=== PATIENT | female | born 1955 | race Caucasian/White ===

== ENCOUNTER 2020-02-17 21:57 | Inpatient (IN) | payer MEDICARE, MEDICAID ==
[2020-02-17] MEDS ORDERED: HYDROcodone/Acetaminophen 5/325 mg Tablet PO PRN ×2 (23:33)
[2020-02-17] MEDS ORDERED: Ondansetron ODT 4 MG TAB PO PRN (23:33)
[2020-02-17] MEDS ORDERED: Ondansetron PF 4 MG/2 ML Vial IVP PRN (23:33)
[2020-02-17] MEDS ORDERED: Acetaminophen 650 MG Suppository PR PRN (23:33)
[2020-02-17] MEDS ORDERED: Acetaminophen 325 MG TAB PO PRN (23:33)
[2020-02-18] MEDS ORDERED: Sodium Chloride 0.9% (PF) 10 ML VIAL FS PRN (00:06)
--- NOTE | 2020-02-18 00:08 | PDOC.HHP ---
Hospitalist HPI - History of Present Illness general malaise History of Present Illness: patient is oriented to person and place but is a poor historian and states does not remember pmhx and is tired of answering questions, most of the history was obtain from transfer records. Case of an 64y/o female with pmhx of hypertension, hyperlipidemia, hypercholesterolemia, mental impairment and colo CA who comes transfer from [facility] ED due to sepsis secondary to uti, gi bleeding and renal failure. patient states she has been having diarrhea for a month, which is watery and has recently started to turned black and is associated with weight loss and anorexia. patient denies any fever chills abdominal pain cough or sick contacts. on 12/23/2019 had a colonic biopsy which showed lymphatic colitis, pt is not currently on any treatment and has been refussing further treatment for her cancer for the last couple of months. last colonoscopy was last august and showed rectovaginal fistula. was brought to the hospital due to to feeling generalize weakness and malaise. Hospitalist ROS - Review of Systems All other systems reviewed; all pertinent +/- noted in HPI/Subj Hospitalist History - Past Medical History Cardiac: reports: HTN, Hyperlipidemia Heme/Onc: reports: Cancer Endocrine: reports: Osteoporosis - Past Surgical History Past Surgical History: reports: no pertinent history - Family History Family History: reports: cancer, diabetes mellitus, hyperlipidemia, hypertension - Social History Smoking Status: Current every day smoker - Exam General Appearance: NAD, awake alert, ill appearing Eye: PERRL, anicteric sclera ENT: normocephalic atraumatic, no oropharyngeal lesions Neck: supple, symmetric, no JVD, no thyromegaly Heart: RRR, no murmur, no gallops, no rubs, normal peripheral pulses Respiratory: CTAB, no wheezes, no rales, no ronchi, normal chest expansion Gastrointestinal: soft, non-tender, non-distended, normal bowel sounds, no palpable masses Extremities: no cyanosis, no clubbing, no edema Skin: normal turgor, no lesions Neurological: cranial nerve grossly intact, normal sensation to touch, no focal deficits, no new deficit Musculoskeletal: normal tone, generalized weakness Psychiatric: normal affect, normal behavior, oriented to person, oriented to place Hospitalist Results - EKG Interpretation EKG: nsr, premature complexes - Radiology Interpretation Chest x-ray Status: report reviewed by me (no infiltrates effusions or consolidations) Hospitalist H&P A/P - Problem (1) Sepsis associated hypotension Code(s): A41.9 - SEPSIS, UNSPECIFIED ORGANISM; I95.9 - HYPOTENSION, UNSPECIFIED Status: Acute (2) UTI (urinary tract infection) Status: Acute (3) Colitis Code(s): K52.9 - NONINFECTIVE GASTROENTERITIS AND COLITIS, UNSPECIFIED Status : Acute (4) Renal failure (ARF), acute on chronic Code(s): N17.9 - ACUTE KIDNEY FAILURE, UNSPECIFIED; N18.9 - CHRONIC KIDNEY DISEASE, UNSPECIFIED Status: Acute (5) Hypertension Code(s): I10 - ESSENTIAL (PRIMARY) HYPERTENSION Status: Acute (6) GI bleeding Code(s): K92.2 - GASTROINTESTINAL HEMORRHAGE, UNSPECIFIED Status: Acute - Plan Plan: sepsis - patient with elevated lactid acid at 3.4, with hypotension with a systolic b/p in the 80s with tachycardia on initial presention with possible multiple focus of infection, uti cdif colitis. patient was treated with ivs fluids, blood and urine culture was taken and patient was started on rocephin and zosym before transfer uti - patient with u/a consistent w uti, u/c was taken and patient started on broadspectrum abx, due to renal failure and hx of rectovaginal fistula patient was started on merrem renally adjusted colitis - hx of diarrhea for 1 month, cdif +, contact isolation was started as well as po vancomycin acute over chronic renal failure - last creatinine of patient was at 4, no arrives at 9, will treat w ivfs and carvajal placement. will send renal us and u/a to evaluate sedimentation and microscopy, neprhologist was consulted anemia arrived at [facility] w hg at 6.9 was transfused 1 prbc, will re-check q8hrs and transfuse as needed gi bleeding - positive occult blood with dark stools, patient will be placed on npo, protonix 40iv q 12 started, gi was also consulted
[2020-02-18 01:00] VITALS: BMI 16.9
[2020-02-18] MEDS: Sodium Chloride 0.9% 1,000 ML IV SCH ×3 (01:00→22:11)
[2020-02-18 02:02] LABS: Bacteria/HPF 4+ HPF (None Seen); Bilirubin Negative (Negative); Blood, Urine 2+ (Negative); Clarity Extra Turbid (Clear); Glucose, Urine (Dipstick) Normal (Negative); Leukocyte 500 Leu/uL (Negative); Nitrite Negative (Negative); Protein, Urine (Dipstick) 200 mg/dL (Neg-Trace); Urobilinogen Normal mg/dL (Less than 2); WBC/HPF Greater than 50 HPF (0-3)
[2020-02-18 02:03] LABS: RBC/HPF 21-50 HPF (0-3)
[2020-02-18 04:56] LABS: #Lymphocytes 0.4 thou/uL (1.20-3.40); #Monocytes 0.5 thou/uL (0.11-0.59); #Neutrophils 6.7 thou/uL (1.40-6.50); %Eosinophils 0.1 % (0.0-10.0); %Lymphocytes 5.2 % (21.0-51.0); %Neutrophils 88.8 % (42.0-75.0); Hemoglobin 10.1 g/dL (12.0-16.0); Mean Corpuscular Hemoglobin 29.7 pg (27.0-31.0); Mean Corpuscular Volume 90.1 fL (78.0-98.0); Mean Platelet Volume 9.2 fL (7.4-10.4); Platelet Count 72 thou/uL (130-400); RBC Distribution Width 13.8 % (11.5-14.5); White Blood Cell (WBC) Count 7.5 thou/uL (4.8-10.8)
[2020-02-18 04:58] LABS: INR-International Normal Ratio 1.2; PTT 33.6 SEC (22.9-36.1)
[2020-02-18] MEDS: Vancomycin HCl 25 MG/ML Oral PO SCH ×4 (05:15→23:55)
[2020-02-18 05:16] LABS: ALT (SGPT) 9 U/L (8-55); AST (SGOT) 16 U/L (5-34); Albumin 1.8 g/dL (3.4-4.8); Alkaline Phosphatase 87 U/L (40-110); Anion Gap 22 mmol/L (10-20); BUN (Urea Nitrogen) 93 mg/dL (9.8-20.1); Bilirubin, Total 0.6 mg/dL (0.2-1.2); Calc. Creatinine Clearance 5 mL/min (70-130); Chloride 108 mmol/L (98-107); Estimated GFR-MDRD 5; Globulin 3.1 g/dL (2.4-3.5); Glucose 86 mg/dL (80-115); Protein, Total 4.9 g/dL (6.0-8.3); Sodium 135 mmol/L (136-145)
[2020-02-18 05:28] LABS: Carbon Dioxide 8 mmol/L (23-31); Potassium 2.8 mmol/L (3.5-5.1)
[2020-02-18] MEDS ORDERED: Potassium Chloride 20 MEQ TAB PO SCH ×2 (06:00→11:30)
[2020-02-18 06:35] LABS: Hemoglobin 9.2 g/dL (12.0-16.0)
--- NOTE | 2020-02-18 08:43 | ULT ---
EXAM: BILATERAL RENAL ULTRASOUND COMPLETE: History: Renal failure. FINDINGS: There is evidence for ascites bilaterally. The right kidney measures 10.1 x 4.6 x 5.2 cm. The left ki dney measures 9.1 x 5 x 5.2 cm. There is moderate bilateral renal hydronephrosis. Both right and left renal cortices appear to be somewhat hyperechoic, evidence for chronic lung disease, as well as some diffuse cortical thinning bilaterally. Reyna catheter is in place within an empty bladder. IMPRESSION: Extensive ascites. Moderate bilateral renal hydronephrosis with small kidneys and thin renal cortices bilaterally as wel l as increased cortical echogenicity, evidence for nonspecific chronic renal disease. POS: [facility]
[2020-02-18] MEDS: Pantoprazole 40 MG VIAL IVP SCH ×2 (09:08→20:21)
[2020-02-18] MEDS: Meropenem 500 MG in Sodium Chloride 0.9% 100 ML IVPB SCH (09:58)
--- NOTE | 2020-02-18 13:40 | CON ---
DATE OF CONSULTATION: 02/18/2020 REASON FOR CONSULTATION: Possible GI bleeding. 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 Upon conferring with the patient, she was only alert and oriented x2, was a relatively poor historian, so the majority of the information was obtained through chart review and discussion of her case with current staff. As far as I can tell, the patient was originally diagnosed with invasive adenocarcinoma of the rectum that did have evidence of metastatic disease with a lymph node positive in May of 2018. She subsequently underwent a low anterior resection of this rectal adenocarcinoma and had adjuvant chemotherapy and radiation therapy from November of 2018 to March of 2019. At which point, the patient seems to have refused any further treatments. However, follow up with her oncologist at [facility] [place] in [place], had imaging performed at that point in August 2019, which did not show any evidence of recurrent disease. However, it did show the presence of a colovaginal fistula that was ultimately confirmed on colonoscopy at that time. Since then, the patient has had a repeat colonoscopy in December of this year, which confirmed the presence of lymphocytic colitis secondary to chronic diarrhea that the patient had been having. Since that time, the patient had continued to have diarrhea given lack of treatment for her lymphocytic colitis and over the course of the last month had been having increased weight loss, anorexia, and possible black stools in addition to this diarrhea. With the worsening of all the symptoms that prompted the patient to seek healthcare assistance in the [place], where she was noted to have probable sepsis, hypotension, and altered mental status with labs showing acute renal injury. At which point, she was transferred to [facility] in [place] for further management/evaluation. Since being transferred to [facility] in [place], the patient has been exhibiting altered mental status and was unable to determine the date and her situation here in the hospital upon interview. However, she has not had any episodes of hematemesis, melena, or hematochezia. She has had some liquid type bowel movement since she has been admitted to the hospital. Otherwise, she does endorse [id number] generalized abdominal pain, in addition to weakness and malaise. Currently, she denies any nausea, vomiting, fevers, chills, hematemesis, melena, hematochezia, dysphagia, or odynophagia. Of note, Clostridium difficile testing at the outside institution was positive in addition to blood cultures now positive for the presence of gram-negative rods. REVIEW OF SYSTEMS: A 10-category review of systems was obtained with all responses negative except for the pertinent positives as listed above. However, the reliability of this review of systems is questionable given the patient's altered mental status. PAST MEDICAL HISTORY: As per HPI. PAST SURGICAL HISTORY: Low anterior resection and multiple colonoscopies. FAMILY HISTORY: No mention of any GI malignancies in the patient's chart. SOCIAL HISTORY: Smokes approximately 1 pack of tobacco per day. No mention of alcohol or illicit drug use. OUTPATIENT MEDICATIONS: Reviewed. INPATIENT MEDICATIONS: Reviewed. ALLERGIES: ALENDRONATE. PHYSICAL EXAMINATION: VITAL SIGNS: Temperature 97.3, pulse 95, blood pressure 106/75, respiratory rate 16, and saturating 100% on room air. GENERAL: The patient was lying in bed, in no acute distress, alert and oriented x2. HEENT: Normocephalic and atraumatic. NECK: Supple. No JVD or scleral icterus noted. CARDIOVASCULAR: Regular rate and rhythm with no discernible murmurs, gallops, or rubs. RESPIRATORY: Clear to auscultation bilaterally with no discernible wheezes or rales. ABDOMEN: Normoactive bowel sounds. Soft and nondistended. Tenderness to palpation in all abdominal quadrants to both light and deep palpation. EXTREMITIES: No cyanosis, clubbing, or edema. Extremities were cachectic in appearance. LABORATORY DATA: CBC with a white blood cell count of 7.5, hemoglobin 9.2, hematocrit 30.6, and platelets 72. Chemistry with a sodium of 135, potassium 2.8, chloride 108, CO2 of 8, BUN 93, creatinine 7.95, glucose 86, AST 16, ALT 9, alkaline phosphatase 87, total bilirubin 0.6, and albumin 1.8. INR 1.2. Microbiology from the outside institution showed that the patient was Clostridium difficile positive for both antigen and toxin, in addition to blood cultures positive for the presence of gram-negative rods. IMAGING DATA: No current GI imaging is available for review, although there was mention in her chart of a CT scan obtained in August 2019, which showed the presence of a colovaginal fistula, but no evidence of recurrent colonic malignancy. ASSESSMENT AND PLAN: The patient is a 64-year-old female with past medical history of hypertension, hyperlipidemia, chronic hepatitis C infection, osteoporosis, osteoarthritis, colon cancer status post resection with adjuvant chemotherapy and radiation therapy resulting in a rectovaginal fistula and a recent diagnosis of lymphocytic colitis presenting with Clostridium difficile colitis, acute kidney injury/failure, sepsis secondary to probable urinary tract infection with translocation to a bacteremia. Anemia/GI bleeding: The patient is presenting with a longstanding history of diarrhea as well as the presence of a colovaginal fistula that has been present since at least August 2019. As such, it seems that the patient has been treated with multiple antibiotics during that time period and has had been evaluated by a surgeon in [place], [place] for surgical correction of this fistula, but has not undergone that just yet. However, the patient is presenting with a moderate anemia with possible dark colored stools over the last month. However, upon conferring with the patient, this is not substantiated and there is no mention of melenic type stools or hematochezia per chart review. At this time, it is unclear if there is any overt evidence of active GI bleeding and with a positive FOBT obtained prior to this admission, it could be secondary to her coexisting colovaginal fistula or the Clostridium difficile colitis. Given the diagnosis of sepsis with concurrent hypotensive episodes as well as her history or her recent diagnosis of Clostridium difficile colitis, endoscopic management for either esophagogastroduodenoscopy or colonoscopy is ill-advised given the increased risk of perioperative complications. Recommendations; 1. Would continue to trend her H and H and transfuse as necessary to maintain an H and H of 7/21. 2. Continue to monitor clinically for signs of active GI bleeding. 3. Could continue the patient on a proton pump inhibitor 40 mg b.i.d. in light of possible upper GI bleeding, although it may contribute to her continued Clostridium difficile colitis, given this is a risk factor for the infection. 4. Recommend adequate treatment of her Clostridium difficile colitis as a more likely source of darker colored stools and/or hematochezia. 5. No esophagogastroduodenoscopy or colonoscopy is recommended at this time, given sepsis and concurrent Clostridium difficile colitis. 6. If the patient is adequately resuscitated and adequately treated for both her bacteremia and Clostridium difficile colitis, but continues to have a downtrending of her H and H, I would then reconsider endoscopic evaluation at that time. Clostridium difficile colitis: The patient is presenting with a history of colon cancer status post resection with adjuvant chemotherapy and radiation therapy. It is not specifically stated in her chart, but more than likely she has had the presence of a colovaginal fistula secondary to radiation changes in the lower abdomen. As such, this is a perfect setup for recurrent urinary tract infections and resultant placement on antibiotics in order to treat these particular infections with her recent antibiotic use and also places her at increased risk for Clostridium difficile colitis, which was confirmed via stool studies prior to this admission. Recommendations; 1. Would continue with oral vancomycin 125 to 250 mg every 6 hours for treatment of her Clostridium difficile colitis. Lymphocytic colitis: Per chart review, the patient was recently diagnosed with lymphocytic colitis based on random biopsies taken from a colonoscopy, it seems in December of 2019. She was not placed on any therapy per chart review, but it is unclear as to this was undertaken or not. Given the diagnosis of lymphocytic colitis, normally this is treated with budesonide 9 mg daily, but given her active bacteremia, urinary tract infection, and Clostridium difficile colitis, treatment would be decided as strongly ill-advised given that is a steroid and could potentially make that infections much worse. Recommendations; 1. Would hold on any treatment of lymphocytic colitis for now in light of her sepsis secondary to bacteremia, urinary tract infection, and Clostridium difficile colitis. 2. Would attempt to have the patient follow up with her outpatient meat seafood associate on discharge for adequate treatment for this condition. 3. We will continue aggressive replacement of potassium as her lymphocytic colitis and Clostridium difficile colitis could generate significant diarrhea resulting in hypokalemia. At this time, we have no additional recommendations with endoscopic management strongly advised against at this time. We will continue to follow peripherally for now. Please call with any questions. Job ID: [id number]
--- NOTE | 2020-02-18 14:47 | PDOC.HOSPP ---
- Subjective Encounter Date: 02/18/20 Subjective: Confused - Objective Vital Signs & Weight: Vital Signs (12 hours) Temp Pulse Resp BP Pulse Ox 02/18/20 11:32 97.3 F L 95 16 106/75 100 02/18/20 08:14 97.4 F L 82 16 108/77 99 02/18/20 08:00 99 02/18/20 05:15 97.4 F L 92 16 103/72 100 Weight Admit Weight 99 lb Weight 99 lb 1.6 oz I&O: 02/17/20 02/18/20 02/19/20 06:59 06:59 06:59 Intake Total 800 Output Total 20 Balance 780 Result Diagrams: 02/18/20 06:22 02/18/20 04:44 Hospitalist ROS - Medication Medications: Active Medications Generic Name Dose Route Start Last Admin Trade Name Freq PRN Reason Stop Dose Admin Meropenem 500 mg/ Sodium 100 mls @ 200 mls/hr 02/18/20 09:00 02/18/20 09:58 Chloride IVPB 100 mls DAILY BUBBA Administration Sodium Chloride 1,000 mls @ 100 mls/hr 02/17/20 23:45 02/18/20 11:35 Normal Saline 0.9% IV 1,000 mls .Q10H BUBBA Administration Ondansetron HCl 4 mg 02/17/20 23:33 02/18/20 05:15 Zofran IVP 4 mg Q6H PRN Administration Nausea/Vomiting Pantoprazole Sodium 40 mg 02/18/20 09:00 02/18/20 09:08 Protonix IVP 40 mg BID BUBBA Administration Vancomycin HCl 125 mg 02/18/20 06:00 02/18/20 12:40 First Vancomycin PO 125 mg Q6HR BUBBA Administration - Exam General Appearance: awake alert Neck: supple Heart: RRR Respiratory: no tachypnea Gastrointestinal: soft, tender to palpation, distended Hosp A/P (1) Colon cancer Code(s): C18.9 - MALIGNANT NEOPLASM OF COLON, UNSPECIFIED Status: Acute (2) Colitis Code(s): K52.9 - NONINFECTIVE GASTROENTERITIS AND COLITIS, UNSPECIFIED Status : Acute (3) GI bleeding Code(s): K92.2 - GASTROINTESTINAL HEMORRHAGE, UNSPECIFIED Status: Acute (4) Renal failure (ARF), acute on chronic Code(s): N17.9 - ACUTE KIDNEY FAILURE, UNSPECIFIED; N18.9 - CHRONIC KIDNEY DISEASE, UNSPECIFIED Status: Acute (5) Sepsis associated hypotension Code(s): A41.9 - SEPSIS, UNSPECIFIED ORGANISM; I95.9 - HYPOTENSION, UNSPECIFIED Status: Acute (6) UTI (urinary tract infection) Status: Acute - Plan 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 Sepsis with C. difficile colitis and UTI. Acute renal failure. Gnosis is poor. This was discussed with her decision maker who is her sister. She decided to pursue hospice care. We will consult hospice.
[2020-02-18 14:53] LABS: Hemoglobin 8.6 g/dL (12.0-16.0)
[2020-02-18 22:17] LABS: Hemoglobin 8.7 g/dL (12.0-16.0)
[2020-02-19] MEDS: Vancomycin HCl 25 MG/ML Oral PO SCH ×4 (05:45→23:37)
[2020-02-19] MEDS: Sodium Chloride 0.9% 1,000 ML IV SCH ×2 (06:57→08:18)
[2020-02-19] MEDS: Pantoprazole 40 MG VIAL IVP SCH ×2 (08:19→20:19)
[2020-02-19] MEDS: Meropenem 500 MG in Sodium Chloride 0.9% 100 ML IVPB SCH (08:19)
--- NOTE | 2020-02-19 13:10 | PDOC.HOSPP ---
- Subjective Encounter Date: 02/19/20 Subjective: Confused. - Objective Vital Signs & Weight: Vital Signs (12 hours) Temp Pulse Resp BP Pulse Ox 02/19/20 08:00 99 02/19/20 07:41 98 F 98 17 103/70 99 Weight Admit Weight 99 lb Weight 99 lb 1.6 oz I&O: 02/18/20 02/19/20 02/20/20 06:59 06:59 06:59 Intake Total 800 2500 Output Total 20 250 Balance 780 2250 Result Diagrams: 02/18/20 22:10 02/18/20 04:44 Hospitalist ROS - Medication Medications: Active Medications Generic Name Dose Route Start Last Admin Trade Name Freq PRN Reason Stop Dose Admin Meropenem 500 mg/ Sodium 100 mls @ 200 mls/hr 02/18/20 09:00 02/19/20 08:19 Chloride IVPB 100 mls DAILY BUBBA Administration Sodium Chloride 1,000 mls @ 100 mls/hr 02/17/20 23:45 02/19/20 08:18 Normal Saline 0.9% IV 1,000 mls .Q10H BUBBA Administration Ondansetron HCl 4 mg 02/17/20 23:33 02/18/20 05:15 Zofran IVP 4 mg Q6H PRN Administration Nausea/Vomiting Pantoprazole Sodium 40 mg 02/18/20 09:00 02/19/20 08:19 Protonix IVP 40 mg BID BUBBA Administration Vancomycin HCl 125 mg 02/18/20 06:00 02/19/20 05:45 First Vancomycin PO 125 mg Q6HR BUBBA Administration - Exam General Appearance: awake alert ENT: normocephalic atraumatic Neck: supple Respiratory: normal chest expansion, no tachypnea Gastrointestinal: soft Neurological: cranial nerve grossly intact, no focal deficits Hosp A/P (1) Colon cancer Code(s): C18.9 - MALIGNANT NEOPLASM OF COLON, UNSPECIFIED Status: Acute (2) Colitis Code(s): K52.9 - NONINFECTIVE GASTROENTERITIS AND COLITIS, UNSPECIFIED Status : Acute (3) GI bleeding Code(s): K92.2 - GASTROINTESTINAL HEMORRHAGE, UNSPECIFIED Status: Acute (4) Renal failure (ARF), acute on chronic Code(s): N17.9 - ACUTE KIDNEY FAILURE, UNSPECIFIED; N18.9 - CHRONIC KIDNEY DISEASE, UNSPECIFIED Status: Acute (5) Sepsis associated hypotension Code(s): A41.9 - SEPSIS, UNSPECIFIED ORGANISM; I95.9 - HYPOTENSION, UNSPECIFIED Status: Acute (6) UTI (urinary tract infection) Status: Acute - Plan 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 Sepsis with C. difficile colitis and UTI. Acute renal failure. prognosis is poor. This was discussed with her decision maker who is her sister. She decided to pursue hospice care. We will consult hospice. 02/18: Continue antibiotics until sepsis is resolved. Then we can transfer to care home with hospice if POA agreeable.
[2020-02-20] MEDS: Sodium Chloride 0.9% 1,000 ML IV SCH ×2 (05:06→11:05)
[2020-02-20] MEDS: Vancomycin HCl 25 MG/ML Oral PO SCH ×4 (05:08→23:23)
[2020-02-20 06:58] LABS: Band 20 % (5-11); Hemoglobin 8.2 g/dL (12.0-16.0); Lymphocytes 6 % (21-51); MDiff Complete? YES; Mean Corpuscular HGB CONC 32.1 g/dL (32.0-36.0); Mean Corpuscular Hemoglobin 28.9 pg (27.0-31.0); Mean Corpuscular Volume 90.1 fL (78.0-98.0); Mean Platelet Volume 8.8 fL (7.4-10.4); Metamyelocyte 2 % (0-0); Monocytes 4 % (0-10); Neutrophil 68 % (42-75); Platelet Count 58 thou/uL (130-400); Platelet Morphology Comment Appears Decreased; RBC Distribution Width 14.2 % (11.5-14.5); Red Blood Cell (RBC) Count 2.83 mill/uL (4.20-5.40); White Blood Cell (WBC) Count 11.2 thou/uL (4.8-10.8)
[2020-02-20 07:00] LABS: BUN (Urea Nitrogen) 91 mg/dL (9.8-20.1); Calc. Creatinine Clearance 6 mL/min (70-130); Calcium 7.3 mg/dL (7.8-10.44); Chloride 117 mmol/L (98-107); Estimated GFR-MDRD 6; Glucose 62 mg/dL (80-115); Potassium 4.2 mmol/L (3.5-5.1); Sodium 137 mmol/L (136-145)
[2020-02-20 07:11] LABS: Carbon Dioxide Less than 8 mmol/L (23-31)
[2020-02-20] MEDS: Meropenem 500 MG in Sodium Chloride 0.9% 100 ML IVPB SCH (08:12)
[2020-02-20] MEDS: Pantoprazole 40 MG VIAL IVP SCH ×2 (08:13→22:30)
--- NOTE | 2020-02-20 11:23 | PDOC.PALCO ---
Palliative Care Consult - Consult Details Requesting Physician: Dr Cavazos Reason for Consult: goals of care, family support - Pertinent HPI 64 year old female who presented initially to [facility]. 12/23 had a biopsy of her colon that showed lymphatic colitis, not seeking treatment, and refusing further treatment. Had a Colonoscopy in August that found a rectovaginal fistula. Patient had an onset of increasing weakness and malaise, presenting to the emergency room for further evaluation. Admitted for further management secondary to spesis, uti, colitis, renal failure, anemia and gi bleeding. Continued decline, sister is KENNY. - Social History Smoking Status: Current every day smoker Smoking: cigarettes Alcohol Use: occasional Drug Use History: none - Medications MAR Reviewed: Yes - Allergies Allergies/Adverse Reactions: Allergies Allergy/AdvReac Type Severity Reaction Status Date / Time alendronate sodium Allergy Verified 02/18/20 01:22 - Subjective Confused with pronounced weakness. - ROS Non Response: due to mental status - Objective Vital Signs: Vital Signs - Most Recent Temp Pulse Resp BP Pulse Ox 95.6 F L 89 14 93/62 94 L 02/20/20 10:51 02/20/20 10:51 02/20/20 10:51 02/20/20 10:51 02/20/20 10:51 Palliative Performance Scale: 30 - Physical Exam Constitutional: cachectic, confusion, ill appearing HEENT: moist MMs Respiratory: no wheezing, unlabored breathing Gastrointestinal: soft, positive bowel sounds, incontinent Genitourinary: carvajal catheter Musculoskeletal: no edema, pulses present Neurology: moves all 4 limbs Skin: cap refill <2 seconds, fragile, friable Deviation from normal: confused, oriented to self - Problem List (1) Colon cancer Code(s): C18.9 - MALIGNANT NEOPLASM OF COLON, UNSPECIFIED Current Visit: Yes Status: Acute (2) Palliative care encounter Code(s): Z51.5 - ENCOUNTER FOR PALLIATIVE CARE Current Visit: Yes Status: Acute (3) Physical deconditioning Code(s): R53.81 - OTHER MALAISE Current Visit: Yes Status: Acute (4) Renal failure (ARF), acute on chronic Code(s): N17.9 - ACUTE KIDNEY FAILURE, UNSPECIFIED; N18.9 - CHRONIC KIDNEY DISEASE, UNSPECIFIED Current Visit: Yes Status: Acute (5) Sepsis associated hypotension Code(s): A41.9 - SEPSIS, UNSPECIFIED ORGANISM; I95.9 - HYPOTENSION, UNSPECIFIED Current Visit: Yes Status: Acute (6) UTI (urinary tract infection) Current Visit: Yes Status: Acute - Plan/Recommendations Plan: CM met with family 02/19/20. Plan is to attempt to improve cognitive status and transition to a Skilled or Nursing facility in [place] as that is where family is, with hospice care. family met with [facility] and they are aware of hopeful transition home. Emotional support discussion in relation to disease trajectory again addressed with MPOA/Sister. Discussed with CM and Dr Macy LOPEZ and [facility] paperwork complete. [60] minutes spent on this encounter with >50% of the time in counseling and coordination of care. Thank you for this very appropriate consult.
[2020-02-20] MEDS ORDERED: Dextrose 5 %-0.45 % NaCl 1,000 ML IV SCH (12:15)
--- NOTE | 2020-02-20 13:41 | PDOC.HOSPP ---
- Subjective Encounter Date: 02/20/20 Subjective: Remains alert but confused. - Objective Vital Signs & Weight: Vital Signs (12 hours) Temp Pulse Resp BP Pulse Ox 02/20/20 12:24 93.7 F L 02/20/20 10:51 95.6 F L 89 14 93/62 94 L 02/20/20 08:20 93 L 02/20/20 07:30 96.9 F L 94 16 97/65 93 L Weight Admit Weight 99 lb Weight 99 lb 1.6 oz I&O: 02/19/20 02/20/20 02/21/20 06:59 06:59 06:59 Intake Total 2500 2700 Output Total 250 250 Balance 2250 2450 Result Diagrams: 02/20/20 06:20 02/20/20 06:20 Hospitalist ROS - Medication Medications: Active Medications Generic Name Dose Route Start Last Admin Trade Name Freq PRN Reason Stop Dose Admin Meropenem 500 mg/ Sodium 100 mls @ 200 mls/hr 02/18/20 09:00 02/20/20 08:12 Chloride IVPB 100 mls DAILY BUBBA Administration Dextrose/Sodium Chloride 1,000 mls @ 100 mls/hr 02/20/20 12:15 02/20/20 12:14 D5 1/2 Ns IV 1,000 mls .Q10H BUBBA Administration Ondansetron HCl 4 mg 02/17/20 23:33 02/18/20 05:15 Zofran IVP 4 mg Q6H PRN Administration Nausea/Vomiting Pantoprazole Sodium 40 mg 02/18/20 09:00 02/20/20 08:13 Protonix IVP 40 mg BID BUBBA Administration Vancomycin HCl 125 mg 02/18/20 06:00 02/20/20 11:11 First Vancomycin PO 125 mg Q6HR BUBBA Administration - Exam General Appearance: awake alert Neck: supple Heart: RRR Respiratory: normal chest expansion, no tachypnea Gastrointestinal: soft Neurological: cranial nerve grossly intact, no focal deficits Hosp A/P (1) Sepsis associated hypotension Code(s): A41.9 - SEPSIS, UNSPECIFIED ORGANISM; I95.9 - HYPOTENSION, UNSPECIFIED Status: Acute (2) Renal failure (ARF), acute on chronic Code(s): N17.9 - ACUTE KIDNEY FAILURE, UNSPECIFIED; N18.9 - CHRONIC KIDNEY DISEASE, UNSPECIFIED Status: Acute (3) Colon cancer Code(s): C18.9 - MALIGNANT NEOPLASM OF COLON, UNSPECIFIED Status: Acute (4) Colitis Code(s): K52.9 - NONINFECTIVE GASTROENTERITIS AND COLITIS, UNSPECIFIED Status : Acute (5) GI bleeding Code(s): K92.2 - GASTROINTESTINAL HEMORRHAGE, UNSPECIFIED Status: Acute (6) UTI (urinary tract infection) Status: Acute - Plan 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 Sepsis with C. difficile colitis and UTI. Acute renal failure. prognosis is poor. This was discussed with her decision maker who is her sister. She decided to pursue hospice care. We will consult hospice. 02/18: Continue antibiotics until sepsis is resolved. Then we can transfer to snf with hospice if POA agreeable. 02/19: Had a family meeting yesterday with hospice. The patient is confused and unable to make decisions for herself. Based on her discussion with her siblings , the patient would be a DNR and she would not want hemodialysis. She did complete the treatment for her cancer and was scheduled for outpatient diverting colostomy given her colo-vaginal fistula. The plan will be to continue treatment for her sepsis and to monitor the progress of her acute renal failure. If her condition does not improve, then they would be okay to transition to hospice. Creatinine level is slightly improving today. The patient remains acidotic with bicarbonate less than 8 and anion gap unmeasurable. She is still on IV fluids with dextrose. We will check ABG to determine the pH and start sodium bicarbonate replacement. We will follow-up with nephrology.
[2020-02-20] MEDS ORDERED: Sodium Bicarbonate 150 MEQ in Dextrose 5% in Water 1,000 ML IV SCH (15:00)
[2020-02-20] MEDS ORDERED: Albumin 25% 25 GM/100 ML BOT IVPB SCH (15:00)
[2020-02-20] MEDS: Albumin 25% 25 GM/100 ML BOT IVPB SCH ×2 (15:24→23:08)
[2020-02-20] MEDS: Sodium Bicarbonate Tab 325 MG TAB PO SCH ×2 (17:11→22:30)
[2020-02-20 17:52] LABS: Actual Bicarbonate (HCO3a) 8.7 mEq/L (22-28); Calcium, Ionized 1.09 mmol/L (1.12-1.30); Carboxyhemoglobin (COHb) 1.7 gm% (0.0-3.0); Hemoglobin (Hb) 6.8 g/dL (12.0-16.0); Potassium - ABG Lab 3.89 mmol/L (3.70-5.30)
[2020-02-20 17:56] LABS: CO2 Tension 20.4 mmHg (35.0-45.0); Puncture Site LRA; pH, Arterial 7.25 (7.35-7.45)
[2020-02-20 19:25] LABS: Creatinine, Urine 48.91 mg/dL (47-110)
--- NOTE | 2020-02-20 20:26 | CON ---
DATE OF CONSULTATION: 02/20/2020 REQUESTING PHYSICIAN: David Cavazos MD REASON FOR CONSULTATION: Acute kidney injury. CHIEF COMPLAINT: Mental status change and generalized weakness. 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 The patient was unable to provide any significant history due to mental status change. History was obtained from review of medical record. It did show the patient on presentation was hypotensive with urinalysis suggestive of UTI, hence impression of sepsis was made and the patient was started on IV antibiotics. The patient also was noted to have elevated BUN and creatinine with creatinine around 9, which was relatively higher than baseline said to be around 4, hence was started also on IV fluids. Blood pressure has improved marginally, but the patient has continued to have altered mental sensorium. During the course of this hospitalization, the patient was found to have C. diff colitis. She also had black stool concerning for GI bleeding, hence GI consult was requested also. There has been increase reported weight loss as well as anorexia and poor oral intake, but there has been no history of nausea or vomiting. Since hospitalization on February 16, the patient has been evaluated with an ultrasound of the kidneys, which showed moderate bilateral hydronephrosis. Creatinine has improved with IV fluid from 9 to 6.3 currently. The patient; however, continued to have significant metabolic acidosis. PAST MEDICAL HISTORY: 1. Hypertension. 2. Hyperlipidemia. 3. Chronic hepatitis C infection. 4. Osteoporosis. 5. Osteoarthritis. 6. Colon cancer status post resection and radiation therapy. 7. Lymphocytic colitis. 8. Rectal vaginal fistula. 9. Chronic diarrhea. 10. Renal insufficiency. PAST SURGICAL HISTORY: Abdominal surgery. FAMILY HISTORY: Reportedly significant for cancer, diabetes mellitus, hyperlipidemia, and hypertension. SOCIAL HISTORY: The patient is said to be an everyday smoker. ALLERGIES: ALENDRONATE. MEDICATIONS: Prior to hospital medications: 1. Loperamide 2 mg q.8 p.r.n. 2. Aspirin 81 mg p.o. daily. 3. Atenolol 25 mg p.o. daily. 4. Lipitor 20 mg p.o. daily. 5. Plavix 75 mg p.o. daily. 6. Prolixin 5 mg p.o. daily. 7. Fluphenazine 2.5 mg p.o. b.i.d. 8. Meclizine 25 mg p.o. t.i.d. p.r.n. 9. Oxybutynin 5 mg p.o. t.i.d. 10. Potassium chloride 20 mEq p.o. daily. 11. Tramadol 50 mg p.o. b.i.d. p.r.n. 12. Trazodone 50 mg p.o. daily. CURRENT HOSPITAL MEDICATIONS: Include the followin. 5% dextrose in half-normal saline at 100 mL/h. 2. Meropenem 500 mg daily. 3. Vancomycin p.o. 125 mg q.6 hours. 4. Protonix 40 mg IV b.i.d. 5. Sodium bicarbonate oral 650 mg p.o. q.i.d. 6. Acetaminophen 250 mg q.4 p.r.n. for pain. 7. Zofran ODT p.r.n. 8. Hydrocodone/acetaminophen p.r.n. for pain. REVIEW OF SYSTEMS: This could not be performed due to the patient's condition. PHYSICAL EXAMINATION: VITAL SIGNS: Temperature 95.8, pulse 102, respiratory rate 14, SpO2 of 98, and blood pressure 93/62. GENERAL: Chronically ill-looking cachectic female, who appeared older than stated age. Afebrile, anicteric, and acyanotic. HEENT: Normocephalic and atraumatic. Oral mucosa is mildly dry. NECK: Supple with no JVD. CARDIOVASCULAR: Regular rhythm and rate with normal heart sounds 1 and 2. RESPIRATORY: Fair air entry bilaterally with some transmitted breath sounds. No obvious rhonchi or crackle or use of accessory muscles appreciated. GI: Full, mild diffuse tenderness with normal bowel sounds noted. Abdominal wall edema noted. UROGENITAL: Reyna catheter is in place draining little urine. EXTREMITIES: Edema of the extremities noticed. SKIN: Scattered ecchymoses and bruises noticed about the extremities and trunk. 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 She was able to tell me her name. However, does not know why she is in the hospital. DIAGNOSTIC DATA: CBC today showed WBC count of 11.2, hemoglobin of 8.2, MCV of 90.1, and platelet of 58. Of note, hemoglobin is down from 10.1 on February 17 to 8.2 currently. BMP today showed sodium 137, potassium 4.2, chloride 117, CO2 less than 8, BUN 91, creatinine 6.88, glucose 62, and calcium 7.3. Magnesium today is 1.5. Note that creatinine is down from 7.95 on February 17 to 6.88 today. Also on February 17, albumin was 1.8, total protein was 4.9, total bilirubin 0.6, AST 16, ALT 9, and alkaline phosphatase 87. Urinalysis performed on February 17 showed dark yellow turbid urine with pH of 7.0, specific gravity of 1.009, urine protein of 200, normal glucose, negative ketone, 2+ blood, and negative nitrite, bilirubin, and urobilinogen. Microscopy showed 500 mg/dL of leukocyte esterase, rbc was 21 to 50, wbc was greater than 50 with 11 to 20 squamous epithelial cells and 4+ bacteria. Renal ultrasound performed on February 17 showed moderate bilateral renal hydronephrosis with small kidneys and thin renal cortices bilaterally as well as increased cortical echogenicity. This was thought to be inconsistent with nonspecific chronic renal disease. ASSESSMENT: 1. Acute kidney injury: This is most likely due to hemodynamic factors related to presumed sepsis, hypotension, and intravascular contraction. Contribution from obstructive uropathy cannot be ruled out given moderate bilateral hydronephrosis on renal ultrasound despite Reyna catheter in-situ. History of colon cancer with metastasis raises concern for ureteral obstruction or bladder in that obstruction. 2. Chronic kidney disease: Most likely due to medical related to history of hypertension. Chronic obstructive uropathy cannot be ruled out as well. 3. Hypotension: Due to effective intravascular space depletion related to chronic diarrhea, poor oral intake and sepsis. The patient also had severe hypoalbuminemia. 4. Severe hypoalbuminemia. 5. Metabolic acidosis: Severe due to sepsis and acute kidney injury. Contribution from normal saline use is also noted. 6. Hypokalemia: Due to poor oral intake and hypomagnesemia, improved. 7. Hypomagnesemia. 8. Failure to thrive. 9. Severe protein-calorie malnutrition. 10. Anasarca. 11. Acute encephalopathy: Multifactorial from acute renal failure as well as sepsis. 12. Anemia: Most likely acute on chronic. 13. Chronic hepatitis C infection. 14. Physical deconditioning. 15. Bilateral hydronephrosis concerning for obstructive uropathy. PLAN: 1. We will get urine electrolytes. We will also get CT scan of the abdomen for further evaluation and delineation of both kidneys and ureter and ascertain the cause of hydronephrosis. 2. We will also expand intravascular space with albumin. 3. We will start IV sodium bicarbonate due to severe metabolic acidosis. 4. We will reassess the patient and correct electrolyte derangements as indicated. 5. Further treatment to follow depending on hospital course. Many thanks for involving us in the care of this patient. We will follow along with you. Job ID: [id number]
--- NOTE | 2020-02-20 20:36 | CT ---
CT ABDOMEN AND PELVIS WITHOUT CONTRAST: Comparison: Renal Ultrasound, 02-18-2020 History: Bilateral hydronephrosis. Acute kidney injury. Technique: Multiple contiguous axial images were obtained in a CT of the abdomen and pelvis without c ontrast. Sagittal and coronal reformats were performed. FINDINGS: There is moderate bilateral hydronephrosis and hydroureter. A Reyna catheter is seen within the urina ry bladder which is decompressed. No calcifications are seen in either kidney or ureter. No mass is s een in the pelvis or urinary bladder near the insertion of the distal ureters. There is a small amount of ascites. Diffuse soft tissue anasarca is seen. The liver, gallbladder, adr enal glands, spleen, and pancreas are unremarkable, although evaluation is limited without IV contras t. lymphadenopathy are seen. Dense vascular calcifications are seen. Degenerative changes are seen in the spine. Small bilateral pleural effusions are seen. There are are as of airspace opacities in the anterior aspect of the left lower lobe and in the right middle lobe. IMPRESSION: 1. Bilateral hydronephrosis. 2. Small ascites and diffuse soft tissue anasarca. 3. Small bilateral pleural effusions. 4. Anterior infiltrates in the lingula and right middle lobe. POS: EAA
[2020-02-21] MEDS: Vancomycin HCl 25 MG/ML Oral PO SCH ×3 (04:57→17:45)
[2020-02-21 05:39] LABS: Mean Corpuscular HGB CONC 33.1 g/dL (32.0-36.0); Mean Corpuscular Hemoglobin 29.2 pg (27.0-31.0); Mean Corpuscular Volume 88.2 fL (78.0-98.0); Mean Platelet Volume 9.7 fL (7.4-10.4); Platelet Count 27 thou/uL (130-400); RBC Distribution Width 14.1 % (11.5-14.5); Red Blood Cell (RBC) Count 2.06 mill/uL (4.20-5.40); White Blood Cell (WBC) Count 4.4 thou/uL (4.8-10.8)
[2020-02-21 05:48] LABS: Band 10 % (5-11); Hypochromia SLIGHT = 6-15 cells (100X) (0-5/hpf); Lymphocytes 4 % (21-51); MDiff Complete? YES; Monocytes 2 % (0-10); Neutrophil 84 % (42-75); Platelet Morphology Comment Appears Decreased
[2020-02-21 05:50] LABS: Anion Gap 18 mmol/L (10-20); BUN (Urea Nitrogen) 91 mg/dL (9.8-20.1); Calc. Creatinine Clearance 6 mL/min (70-130); Carbon Dioxide 10 mmol/L (23-31); Chloride 113 mmol/L (98-107); Estimated GFR-MDRD 6; Glucose 82 mg/dL (80-115); Potassium 3.2 mmol/L (3.5-5.1); Sodium 138 mmol/L (136-145)
[2020-02-21 06:17] LABS: Phosphorus 4.9 mg/dL (2.3-4.7)
[2020-02-21] MEDS: Meropenem 500 MG in Sodium Chloride 0.9% 100 ML IVPB SCH (11:26)
[2020-02-21] MEDS: Sodium Bicarbonate Tab 325 MG TAB PO SCH ×4 (11:27→22:00)
[2020-02-21] MEDS: Potassium Chloride 20 MEQ TAB PO SCH ×2 (11:27→22:00)
[2020-02-21] MEDS: Pantoprazole 40 MG VIAL IVP SCH ×2 (11:27→22:05)
[2020-02-21] MEDS ORDERED: Albumin 25% 25 GM/100 ML BOT IVPB SCH (11:30)
[2020-02-21] MEDS: Albumin 25% 25 GM/100 ML BOT IVPB SCH (11:45)
--- NOTE | 2020-02-21 14:25 | PRG ---
DATE OF SERVICE: 02/21/2020 SERVICE: Nephrology. SUBJECTIVE: A 64-year-old female with colon cancer, hypertension, and CKD, amongst others, admitted due to mental status change, diarrhea, and generalized weakness. Nephrology is called to see the patient for acute kidney injury and electrolyte derangements. The patient was hypotensive on presentation and was found to have severe hypoalbuminemia and oral intake has remained poor with continued loose watery stool. She remained afebrile. There is no nausea or vomiting. OBJECTIVE: VITAL SIGNS: Temperature 97.9, pulse 86, respiratory rate 14, SpO2 of 98% on room air, blood pressure is 94/61. GENERAL: Chronically ill-looking cachectic female, in no obvious distress. Afebrile. Anicteric. Acyanotic. HEENT: Normocephalic and atraumatic. Oral mucosa is dry. CARDIOVASCULAR: Regular rhythm and rate with normal heart sounds one and two. RESPIRATORY: Fair air entry bilaterally with some transmitted breath sounds. No obvious rhonchi or use of accessory muscles appreciated. GI: Full, soft, mild diffuse tenderness. Abdominal wall edema noted. UROGENITAL: Reyna catheter in place. Draining urine. EXTREMITIES: [id number] edema of the extremities and trunk noted. 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 Oriented at least to person. Some confusion noted. DIAGNOSTIC DATA: CBC today showed WBC count of 4.4, hemoglobin of 6.0, MCV of 88.2, platelet of 27. BMP today showed sodium 138, potassium 3.2, chloride 113, CO2 of 10, BUN 91, creatinine 6.82, glucose 82, calcium 7.0, phosphorus 4.9. CT scan of the abdomen and pelvis without contrast performed yesterday on February 19 showed bilateral moderate hydronephrosis with small ascites and diffuse soft tissue anasarca as well as small bilateral pleural effusion. ASSESSMENT: 1. Acute kidney injury: Due to hemodynamic factors as well as obstructive uropathy. Imaging showed moderate bilateral hydronephrosis. History of colon cancer is suggestive of infiltrative process causing ureteric obstruction. Despite Reyna catheter placement, urine output is little or nothing. 2. Metabolic acidosis. 3. Severe hypoalbuminemia with anasarca. 4. Severe protein-calorie malnutrition. 5. Failure to thrive. 6. Hypokalemia. 7. Hypomagnesemia. 8. Chronic diarrhea. 9. Metastatic colon cancer, status post surgery and radiotherapy. 10. Obstructive uropathy. 11. Chronic kidney disease. 12. Pancytopenia. 13. Acute on chronic anemia. PLAN: 1. We will replete serum magnesium and potassium with magnesium sulfate and potassium chloride respectively. 2. We will continue bicarb containing IV fluid as the patient is n.p.o. 3. I discussed with primary attending and recommended Urology consult given bilateral hydronephrosis. 4. We will monitor electrolytes and follow renal function tests. 5. Further treatment to follow depending on hospital course. ADDENDUM: It was informed that the patient's relatives are now inclined to palliative care and hospice. This was due to referred a Urology after inoperable, not a candidate for ureteroscopy and stent placement. Nephrology will sign off at this time. Please call for any clarification or questions. Job ID: [id number]
--- NOTE | 2020-02-21 17:02 | PDOC.HOSPP ---
- Subjective Encounter Date: 02/21/20 Subjective: Confused but dose not appear to be in distress. - Objective Vital Signs & Weight: Vital Signs (12 hours) Temp Pulse Resp BP Pulse Ox 02/21/20 08:00 97.9 F 86 14 94/61 98 Weight Admit Weight 99 lb Weight 99 lb 1.6 oz I&O: 02/20/20 02/21/20 02/22/20 06:59 06:59 06:59 Intake Total 2700 690 Output Total 250 350 Balance 2450 340 Result Diagrams: 02/21/20 05:10 02/21/20 05:10 Hospitalist ROS - Medication Medications: Active Medications Generic Name Dose Route Start Last Admin Trade Name Freq PRN Reason Stop Dose Admin Meropenem 500 mg/ Sodium 100 mls @ 200 mls/hr 02/18/20 09:00 02/21/20 11:26 Chloride IVPB 100 mls DAILY BUBBA Administration Sodium Bicarbonate 150 meq/ 1,150 mls @ 125 mls/hr 02/20/20 15:00 02/20/20 16 :02 Dextrose/Water IV 1,150 mls INF BUBBA Administration Ondansetron HCl 4 mg 02/17/20 23:33 02/18/20 05:15 Zofran IVP 4 mg Q6H PRN Administration Nausea/Vomiting Pantoprazole Sodium 40 mg 02/18/20 09:00 02/21/20 11:27 Protonix IVP 40 mg BID BUBBA Administration Potassium Chloride 20 meq 02/21/20 09:00 02/21/20 11:27 K-Dur PO 02/21/20 21:01 20 meq BID BUBBA Administration Sodium Bicarbonate 650 mg 02/20/20 17:00 02/21/20 11:27 Bicarbonate, Sodium PO 650 mg QID BUBBA Administration Vancomycin HCl 125 mg 02/18/20 06:00 02/21/20 04:57 First Vancomycin PO 125 mg Q6HR BUBBA Administration - Exam General Appearance: awake alert Neck: supple Respiratory: no tachypnea Extremities: no cyanosis, no clubbing Neurological: cranial nerve grossly intact Hosp A/P (1) Sepsis associated hypotension Code(s): A41.9 - SEPSIS, UNSPECIFIED ORGANISM; I95.9 - HYPOTENSION, UNSPECIFIED Status: Acute (2) Renal failure (ARF), acute on chronic Code(s): N17.9 - ACUTE KIDNEY FAILURE, UNSPECIFIED; N18.9 - CHRONIC KIDNEY DISEASE, UNSPECIFIED Status: Acute (3) Colon cancer Code(s): C18.9 - MALIGNANT NEOPLASM OF COLON, UNSPECIFIED Status: Acute (4) Colitis Code(s): K52.9 - NONINFECTIVE GASTROENTERITIS AND COLITIS, UNSPECIFIED Status : Acute (5) GI bleeding Code(s): K92.2 - GASTROINTESTINAL HEMORRHAGE, UNSPECIFIED Status: Acute (6) UTI (urinary tract infection) Status: Acute - Plan 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 Sepsis with C. difficile colitis and UTI. Acute renal failure. prognosis is poor. This was discussed with her decision maker who is her sister. She decided to pursue hospice care. We will consult hospice. 02/18: Continue antibiotics until sepsis is resolved. Then we can transfer to [facility] with hospice if POA agreeable. 02/19: Had a family meeting yesterday with hospice. The patient is confused and unable to make decisions for herself. Based on her discussion with her siblings , the patient would be a DNR and she would not want hemodialysis. She did complete the treatment for her cancer and was scheduled for outpatient diverting colostomy given her colo-vaginal fistula. The plan will be to continue treatment for her sepsis and to monitor the progress of her acute renal failure. If her condition does not improve, then they would be okay to transition to hospice. Creatinine level is slightly improving today. The patient remains acidotic with bicarbonate less than 8 and anion gap unmeasurable. She is still on IV fluids with dextrose. We will check ABG to determine the pH and start sodium bicarbonate replacement. We will follow-up with nephrology. 02/20: CT Abd showing bilateral hydronephrosis. Discussed with urology. Unlikely to be a candidate for aggressive intervention. Pancytopenia now present. Prognosis is poor. Discussed with family. We will pursue comfort care and hospice.
--- NOTE | 2020-02-21 17:05 | CON ---
DATE OF CONSULTATION: 02/21/2020 REASON FOR CONSULT: Bilateral hydronephrosis. HISTORY OF PRESENT ILLNESS: Ms. Ojeda is a 64-year-old female with history of chronic hepatitis C, hyperlipidemia, hypertension, history of rectal cancer, lymphocytic colitis who transitioned care from [facility]. I did review her [facility] records as well as current admission as she is not a reliable historian due to encephalopathy. Power of commercial real estate attorney, sister, contacted after I reviewed the chart and assessed the patient. History obtained from chart review as she is unable to provide further history. She has been admitted for the last few days, with encephalopathy, poor intake, and diarrhea. Her imaging and labs reviewed. The patient with history of renal insufficiency, decreased urine output, her creatinine on admission was 7.9, currently is 6.8. Nephrology has been consulted. Renal ultrasound demonstrated bilateral hydronephrosis, Reyna catheter remains in place in which she makes about 200 to 300 mL per day of temo yellow urine. CT was subsequently obtained demonstrating bilateral hydronephrosis, moderate. Reyna catheter is in the bladder with decompressed bladder. She has ascites, diffuse anasarca with ascites. I reviewed the CT myself demonstrating moderate bilateral hydro, the ureters can be traced to level of the proximal ureter; however, due to haziness of her abdomen on CT with ascites, I do not appreciate obvious dilated ureter to the level of the UVJ. She has a history of rectal cancer, status post chemo RT, also complicated by rectovaginal fistula. She is also currently found to have C. diff colitis, with black stools concerning for GI bleed. She remains afebrile, however, is hypotensive, with mental status changes. Her labs today repeat is concerning for her decompensation as her white count is decreased to 4.4, hemoglobin decreased from 8.2 to 6 with severe thrombocytopenia of 27. She had been on Plavix up until February 17 since she arrived. PAST MEDICAL HISTORY: Hypertension, hyperlipidemia, chronic hepatitis C, osteoporosis, osteoarthritis, rectal cancer, status post RT, low anterior resection, lymphocytic colitis, rectovaginal fistula, chronic diarrhea, renal insufficiency. PAST SURGICAL HISTORY: Includes status post low anterior resection by Dr. Jean in [place], [place], in July 2018, followed by chemo RT, November to March 2019, completed. Her prior imaging from [facility] in March 2019 demonstrated no evidence of recurrent disease. FAMILY HISTORY: Positive for diabetes, hyperlipidemia, and hypertension. SOCIAL HISTORY: History of tobacco abuse. ALLERGIES: ALLERGIC TO ALENDRONATE. CURRENT MEDICATIONS: Include Tylenol, Durham 5/325, meropenem, Zofran, Protonix, K-Dur, bicarb, vancomycin. Of note, she had been on Plavix until February 17 per review of records. PHYSICAL EXAMINATION: VITAL SIGNS: T-max of 97.9, 86, 14, 98, blood pressure labile at 94/61. GENERAL: The patient is lethargic, mumbling, unable to provide her history, confused. HEENT: Poor dentition. HEART: Regular rate. LUNGS: Decreased inspiratory effort. ABDOMEN: Demonstrates palpation consistent with anasarca and ascites. No suprapubic tenderness or CVA tenderness is appreciated. EXTREMITIES: No cyanosis, clubbing, or edema. MUSCULOSKELETAL: She appears to be thin, cachectic, moving all extremities. PSYCHIATRIC: Unable to assess due to her encephalopathy. : Demonstrates Reyna catheter draining concentrated yellow urine. I did flush the catheter at bedside with no clots, patent. Bimanual exam demonstrates excoriation of her perineum with soft tissue edema consistent with anasarca. Reyna catheter is palpated to be within the bladder. There is profuse diarrhea in her vaginal vault consistent with C. diff, fistula. PERTINENT LABORATORY AND IMAGING DATA: White count on arrival 7.5; today, it has dropped to 4.4. Hemoglobin dropped from 8.2 to 6. On arrival, her platelet was 72. This morning, it is critically low at 27. INR, PTT are unremarkable. Chemistry profile: Sodium 138, potassium 3.2, BUN 91, creatinine is 6.82, on arrival 7.95. Urine culture demonstrating E. coli. Blood culture negative. UA, however, is a contaminated specimen, 200 protein, 500 leukocytes, 20 to 50 rbc's, greater than 50 wbc's, 11 to 20 squamous, 4+ bacteria. Renal ultrasound demonstrating bilateral hydro. CT of the abdomen and pelvis without contrast which I reviewed myself dated February 20, 2020: Bilateral moderate hydronephrosis and hydroureter. Reyna catheter seen in the bladder decompressed. No significant calcification in the ureter or kidney. No pelvic mass. Mildly prominent ureter down to the level of the proximal ureter to the level of L2, subsequently I cannot definitively see a dilated ureter. Small bilateral pleural effusion, small ascites, diffuse soft tissue anasarca. Creatinine, which I reviewed from [facility] in February 2020 was 9.06 and in December [address] at [facility] in August 2019, demonstrated no evidence of hydronephrosis. No lymphadenopathy. Development of colovaginal fistula. IMPRESSION AND PLAN: Ms. Ojeda is a 64-year-old female with past medical history of: 1. Hepatitis C. 2. Rectal cancer, status post low anterior resection, status post chemo RT. 3. History of lymphocytic colitis. 4. Current admission due to encephalopathy, deconditioning, malaise, Clostridium difficile colitis. 5. Chronic renal insufficiency, acute renal insufficiency. 6. Bilateral hydronephrosis of unclear etiology. RECOMMENDATIONS: I reviewed her chart as well as clinical history updated from [facility]. I had a lengthy discussion with sister who is a power of commercial real estate attorney, whom I contacted regarding a clinical history and prognosis. Palliative Care has already seen the patient, they are in transition to convert the patient to hospice setting. I informed the sister, regarding her poor prognosis, she has taken a turn for the worst demonstrating pancytopenia. I do not believe that her positive urine culture is resulting in her clinical symptoms of sepsis or deconditioning. Her UA is initially contaminated, as she does have history of vaginal rectal cancer. Nevertheless, she has been on appropriate antibiotic therapy. As she is decompensating, I did discuss the options of bilateral percutaneous nephrostomy tube versus ureteral stent. Either approach remains high risk as she has pancytopenia, increased risk of bleeding. Moreover, if ureteral stent or nephrostomy tube, she will most likely require this indefinitely. There is no obvious cause of her bilateral hydronephrosis on CT. With all questions answered to her sister's satisfaction, she desires her sister to proceed with hospice as previously planned. I informed the hospitalist of record. Job ID: [id number] [facility] HOSPITALHilda
[2020-02-22] MEDS: Vancomycin HCl 25 MG/ML Oral PO SCH ×2 (00:36→05:37)
[2020-02-22 06:03] LABS: Band 32 % (5-11); Hemoglobin 6.8 g/dL (12.0-16.0); Lymphocytes 4 % (21-51); MDiff Complete? YES; Mean Corpuscular HGB CONC 33.6 g/dL (32.0-36.0); Mean Corpuscular Hemoglobin 29.8 pg (27.0-31.0); Mean Corpuscular Volume 88.6 fL (78.0-98.0); Mean Platelet Volume 11.1 fL (7.4-10.4); Monocytes 1 % (0-10); Neutrophil 63 % (42-75); Platelet Count 22 thou/uL (130-400); Platelet Morphology Comment Appears Decreased; RBC Distribution Width 14.3 % (11.5-14.5); Red Blood Cell (RBC) Count 2.29 mill/uL (4.20-5.40); White Blood Cell (WBC) Count 7.2 thou/uL (4.8-10.8)
[2020-02-22 06:25] LABS: Albumin 2.4 g/dL (3.4-4.8); Anion Gap 17 mmol/L (10-20); BUN (Urea Nitrogen) 89 mg/dL (9.8-20.1); BUN/Creatinine Ratio 12.54; Calc. Creatinine Clearance 6 mL/min (70-130); Calcium 7.2 mg/dL (7.8-10.44); Carbon Dioxide 15 mmol/L (23-31); Chloride 112 mmol/L (98-107); Estimated GFR-MDRD 6; Glucose 110 mg/dL (80-115); Magnesium 1.6 mg/dL (1.6-2.6); Phosphorus 5.2 mg/dL (2.3-4.7); Potassium 3.4 mmol/L (3.5-5.1); Sodium 141 mmol/L (136-145)
--- NOTE | 2020-02-22 07:34 | PRG ---
DATE OF SERVICE: 02/22/2020 SUBJECTIVE: Clinical status as previous, the patient incoherent and mumbling. OBJECTIVE: VITAL SIGNS: Vital signs are stable. Afebrile. I's and O's, urine output 350. ABDOMEN: Soft. No rigidity. No rebound. GENITOURINARY: Urine output is concentrated yellow. LABORATORY DATA: Pertinent labs this morning; white count 7, hemoglobin 6.8, platelet count of 22,000, and 32 bands. BUN 89 and creatinine 7.1. IMPRESSION AND PLAN: 1. A 64-year-old female with history of chronic hepatitis C. 2. History of rectal cancer, status post low anterior resection, chemo, RT. 3. History of colovaginal fistula. 4. Bacteruria, however, contaminated specimen on this admission, on broad- spectrum antibiotics. 5. Hydronephrosis of unclear etiology. 6. Chronic renal insufficiency. As previous, I have discussed her case with her power of district attorney, sister, they have transitioned the patient to hospice given her critical status and deconditioning. Await disposition to be finalized for hospice. will sign off. Call if any questions or concerns. Job ID: [id number] MTDD
[2020-02-22] MEDS: Sodium Bicarbonate Tab 325 MG TAB PO SCH (07:53)
[2020-02-22] MEDS: Pantoprazole 40 MG VIAL IVP SCH ×2 (07:53→20:17)
[2020-02-22] MEDS: Meropenem 500 MG in Sodium Chloride 0.9% 100 ML IVPB SCH (09:13)
[2020-02-22] MEDS ORDERED: Lorazepam 2 MG/ML VIAL SLOW IVP PRN (09:39)
--- NOTE | 2020-02-22 09:43 | PDOC.PALPN ---
Palliative Progress Note - Subjective Confused, weakness. - Objective Vital Signs: Vital Signs - Most Recent Temp Pulse Resp BP Pulse Ox 97.3 F L 98 20 118/77 100 02/22/20 08:14 02/22/20 08:14 02/22/20 08:14 02/22/20 08:14 02/22/20 08:14 - Physical Exam Constitutional: cachectic, emaciated, encephalitic, ill appearing HEENT: EOMI, moist MMs Respiratory: unlabored breathing Genitourinary: carvajal catheter Musculoskeletal: no cyanosis, no clubbing, diffuse muscle atrophy Neurology: moves all 4 limbs Skin: fragile, friable Deviation from normal: Confused - Assessment (1) Physical deconditioning Code(s): R53.81 - OTHER MALAISE Current Visit: Yes Status: Acute (2) Palliative care encounter Code(s): Z51.5 - ENCOUNTER FOR PALLIATIVE CARE Current Visit: Yes Status: Acute (3) Colitis Code(s): K52.9 - NONINFECTIVE GASTROENTERITIS AND COLITIS, UNSPECIFIED Current Visit: Yes Status: Acute (4) Colon cancer Code(s): C18.9 - MALIGNANT NEOPLASM OF COLON, UNSPECIFIED Current Visit: Yes Status: Acute (5) Renal failure (ARF), acute on chronic Code(s): N17.9 - ACUTE KIDNEY FAILURE, UNSPECIFIED; N18.9 - CHRONIC KIDNEY DISEASE, UNSPECIFIED Current Visit: Yes Status: Acute - Plan Plan: Family hopeful for transition of care to Hospice. Comfort measures, discussed with CM and Hospice will re-evaluate for placement to inpatient hospice. Ativan ordered IVP for any restlessness. Communicated with JONATHAN Dorado RN Palliative Care. [40] minutes spent on this encounter with >50% of the time in counseling and coordination of care. - ROS Non Response: due to mental status
--- NOTE | 2020-02-22 18:20 | PDOC.HOSPP ---
- Subjective Encounter Date: 02/22/20 - Objective Vital Signs & Weight: Vital Signs (12 hours) Temp Pulse Resp BP Pulse Ox 02/22/20 12:12 97.3 F L 98 18 97/67 100 02/22/20 08:14 97.3 F L 98 20 118/77 100 Weight Admit Weight 99 lb Weight 99 lb 1.6 oz I&O: 02/21/20 02/22/20 02/23/20 06:59 06:59 06:59 Intake Total 690 220 Output Total 350 120 50 Balance 340 -120 170 Result Diagrams: 02/22/20 05:37 02/22/20 05:37 Hospitalist ROS - Medication Medications: Active Medications Generic Name Dose Route Start Last Admin Trade Name Freq PRN Reason Stop Dose Admin Ondansetron HCl 4 mg 02/17/20 23:33 02/18/20 05:15 Zofran IVP 4 mg Q6H PRN Administration Nausea/Vomiting Pantoprazole Sodium 40 mg 02/18/20 09:00 02/22/20 07:53 Protonix IVP 40 mg BID BUBBA Administration Sodium Chloride 10 ml 02/17/20 23:33 02/22/20 07:54 Flush - Normal Saline IVF 10 ml PRN PRN Administration Saline Flush - Exam General Appearance: ill appearing ENT: normocephalic atraumatic Neck: supple Respiratory: normal chest expansion, no tachypnea Gastrointestinal: soft, non-tender, distended Hosp A/P (1) Sepsis associated hypotension Code(s): A41.9 - SEPSIS, UNSPECIFIED ORGANISM; I95.9 - HYPOTENSION, UNSPECIFIED Status: Acute (2) Renal failure (ARF), acute on chronic Code(s): N17.9 - ACUTE KIDNEY FAILURE, UNSPECIFIED; N18.9 - CHRONIC KIDNEY DISEASE, UNSPECIFIED Status: Acute (3) Colon cancer Code(s): C18.9 - MALIGNANT NEOPLASM OF COLON, UNSPECIFIED Status: Acute (4) Colitis Code(s): K52.9 - NONINFECTIVE GASTROENTERITIS AND COLITIS, UNSPECIFIED Status : Acute (5) GI bleeding Code(s): K92.2 - GASTROINTESTINAL HEMORRHAGE, UNSPECIFIED Status: Acute (6) UTI (urinary tract infection) Status: Acute - Plan 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 Sepsis with C. difficile colitis and UTI. Acute renal failure. prognosis is poor. This was discussed with her decision maker who is her sister. She decided to pursue hospice care. We will consult hospice. 02/18: Continue antibiotics until sepsis is resolved. Then we can transfer to residential with hospice if POA agreeable. 02/19: Had a family meeting yesterday with hospice. The patient is confused and unable to make decisions for herself. Based on her discussion with her siblings , the patient would be a DNR and she would not want hemodialysis. She did complete the treatment for her cancer and was scheduled for outpatient diverting colostomy given her colo-vaginal fistula. The plan will be to continue treatment for her sepsis and to monitor the progress of her acute renal failure. If her condition does not improve, then they would be okay to transition to hospice. Creatinine level is slightly improving today. The patient remains acidotic with bicarbonate less than 8 and anion gap unmeasurable. She is still on IV fluids with dextrose. We will check ABG to determine the pH and start sodium bicarbonate replacement. We will follow-up with nephrology. 02/20: CT Abd showing bilateral hydronephrosis. Discussed with urology. Unlikely to be a candidate for aggressive intervention. Pancytopenia now present. Prognosis is poor. Discussed with family. We will pursue comfort care and hospice. 02/21: Antimicrobials discontinued. Transitioning to hospice.
[2020-02-23] MEDS: Pantoprazole 40 MG VIAL IVP SCH (07:46)
[2020-02-23 12:11] VITALS: BP 96/68; TEMP 96
--- NOTE | 2020-02-24 01:04 | DIS ---
DATE OF ADMISSION: 02/17/2020 DATE OF DISCHARGE: 02/23/2020 DISCHARGE DIAGNOSES: 1. Sepsis. 2. Renal failure, [id number]. 3. Colon cancer. 4. Colitis due to Clostridium difficile. 5. Gastrointestinal Bleeding. 6. Urinary tract infection due to gram-negative bacteria. 7. Urinary tract obstruction. 8. Pancytopenia. DISCHARGE MEDICATIONS: No new prescription medications. Continue outpatient medications per Hospice. DISPOSITION: Hospice. HISTORY OF PRESENT ILLNESS AND HOSPITAL COURSE: The patient is a 64-year-old female with a history of chronic hepatitis C, hyperlipidemia, hypertension, rectal cancer, lymphocytic colitis, and colovaginal fistula, who presented to the hospital with complaints of generalized weakness. The patient stated that she has been having diarrhea for a month, and she lost her appetite and has been losing weight. She denied any fever or chills. Recent colonic biopsy revealed lymphocytic colitis, which is likely the underlying cause of her diarrhea. The patient was admitted to the hospital for further evaluation. She was found to be septic, and her stool studies revealed Clostridium difficile. Her urine studies revealed presence of UTI. The patient was managed with broad-spectrum IV antibiotics and IV hydration. Her creatinine level was worsening during her hospital stay. Renal ultrasound revealed bilateral hydronephrosis with empty urinary bladder. Subsequent CT scan of the abdomen showed similar appearance with no visible obstruction. Urology Service was consulted, and after discussion with the patient given her overall poor functional status, she was advised that surgical procedures will likely not be in the patient's interest, and she would likely deteriorate. The patient was progressively confused, so her family were brought into the conversation and had a meeting with the medical staff, Palliative Care team, and the patient, where the decision was made to pursue comfort care and hospice. Job ID: [id number]
== END 2020-02-23 12:10 | disposition hospice, inpatient (51) | DRG 871 ==
LOC: ERS 21:57 → T4-B 22:57
PROVIDERS: ADMIT Internal Medicine; ATTEND Internal Medicine
DX: A41.4 Sepsis due to anaerobes (principal); E43 Unspecified severe protein-calorie malnutrition; G93.41 Metabolic encephalopathy; R64 Cachexia; A04.72 Enterocolitis due to Clostridium difficile, not specified as recurrent; Z68.1 Body mass index [BMI] 19.9 or less, adult; K92.2 Gastrointestinal hemorrhage, unspecified; N17.9 Acute kidney failure, unspecified; N82.3 Fistula of vagina to large intestine; E87.2 Acidosis; N13.6 Pyonephrosis; D61.818 Other pancytopenia; Z51.5 Encounter for palliative care; Z66 Do not resuscitate; M19.90 Unspecified osteoarthritis, unspecified site; E78.5 Hyperlipidemia, unspecified; F32.9 Major depressive disorder, single episode, unspecified; E78.00 Pure hypercholesterolemia, unspecified; M81.0 Age-related osteoporosis without current pathological fracture; F17.210 Nicotine dependence, cigarettes, uncomplicated; I12.9 Hypertensive chronic kidney disease with stage 1 through stage 4 chronic kidney disease, or unspecified chronic kidney disease; N18.9 Chronic kidney disease, unspecified; D63.1 Anemia in chronic kidney disease; B18.2 Chronic viral hepatitis C; A41.51 Sepsis due to Escherichia coli [E. coli]; E88.09 Other disorders of plasma-protein metabolism, not elsewhere classified; E87.6 Hypokalemia; E83.42 Hypomagnesemia; Z85.038 Personal history of other malignant neoplasm of large intestine; Z86.73 Personal history of transient ischemic attack (TIA), and cerebral infarction without residual deficits; Z79.899 Other long term (current) drug therapy
CPT/HCPCS: 36415; 74176; 76770; 80048; 80053; 80069; 81001; 82570; 82805; 83605; 83735; 84100; 84156; 84300; 84540; 85007; 85025; 85027; 85610; 85730; 86850; 86900; 86901; 87040; 87077; 87086; 87186; 93005; C9113; J2060; J2185; J2405; J3475; J3490; J7070; P9047